=== PATIENT | male | born 1995 | race Native Hawaiian/Other Pacific Islander ===

== ENCOUNTER 2021-06-02 20:04 | Emergency (ER) | payer BC ==
[2021-06-02 20:46] VITALS: BP 146/95
== END 2021-06-03 02:53 | disposition home or self-care (01) ==
LOC: ED 20:04
DX: L03.113 Cellulitis of right upper limb (principal); L02.413 Cutaneous abscess of right upper limb; E66.01 Morbid (severe) obesity due to excess calories; Z68.41 Body mass index [BMI] 40.0-44.9, adult; Z79.899 Other long term (current) drug therapy
CPT/HCPCS: 36415; 80053; 82140; 85025; 96365; 96375; 99283; J1885